=== PATIENT | female | born 1995 | race Caucasian/White ===

== ENCOUNTER 2016-08-14 21:23 | Emergency (ER) | payer OTHER ==
[~2016-08-14] VITALS: Ht 157.5 cm; Wt 77.1 kg
[2016-08-14 22:15] VITALS: BP 117/74
--- NOTE | 2016-08-15 00:12 | NUR ---
PT TAKEN TO OF.
--- NOTE | 2016-08-15 00:27 | NUR ---
21Y F BIB BOYFRIEND C/O OF RT EAR PAIN THAT STARTED YESTERDAY. PAIN GOES ON AND OFF AND 9/10 IN SCALE. DENIES N/V/D; SKIN IS PINK/WARM/DRY; AAOX4 WITH EVEN AND STEADY GAIT; PATIENT STATES PAIN OF 0/10 AT THIS TIME; VSS; PATIENT POSITIONED FOR COMFORT; HOB ELEVATED; BEDRAILS UP X2; BED DOWN. ER MD MADE AWARE OF PT STATUS.
--- NOTE | 2016-08-15 01:22 | NUR ---
Dr. Garces evaluating patient.
[2016-08-15 01:41] VITALS: BP 118/65
--- NOTE | 2016-08-15 01:41 | NUR ---
Patient discharged with v/s stable. Written and verbal after care instructions given and explained. Patient alert, oriented and verbalized understanding of instructions. Ambulatory with steady gait. All questions addressed prior to discharge. ID band removed. Patient advised to follow up with PMD. Rx of AUGMENTIN 875MG TAB 1 TAB ORALLY 2 TIMES A DAY WITH MEAL, AURALGAN OTIC SOLUTION 3 DROPS 4 TIMES A DAY NEEDED given. Patient educated on indication of medication including possible reaction and side effects. Opportunity to ask questions provided and answered.
== END 2016-08-15 00:12 | disposition home or self-care (01) ==
LOC: MED 21:23
DX: H66.91 Otitis media, unspecified, right ear (principal)

== ENCOUNTER 2018-10-17 15:09 | Emergency (ER) | payer SELFPAY ==
[~2018-10-17] VITALS: Ht 157.5 cm; Wt 83.5 kg
[2018-10-17 15:15] VITALS: BP 136/67
--- NOTE | 2018-10-17 15:34 | NUR ---
23 Y FEMALE C/O N/V WITH FEVER X 1 DAY. C/O LOWER ABD PAIN. PAIN 4/10 ACHING. NO FEVER AT THIS TIME. DENIES VAGINAL BLEEDING. DENIES CONSTIPATION OR DIARRHEA. IUP 8 WEEKS, G 2 P1, LMP 09/03/18. VSS AT THIS TIME. AA0X4. BED IS DOWN, LOCKED, BED RAIL X 1, ERMD NOTIFIED. DENIES PMH
--- NOTE | 2018-10-17 15:39 | NUR ---
DR MONGE AT BEDSIDE
--- NOTE | 2018-10-17 16:20 | NUR ---
PT AMB TO BATHROOM
--- NOTE | 2018-10-17 16:24 | NUR ---
FLU SWAB COLLECTED
[2018-10-17 16:34] LABS: APPEARANCE,URINE HAZY (CLEAR); BILIRUBIN,URINE NEGATIVE (NEGATIVE); BLOOD, URINE 3+ (NEGATIVE); COLOR,URINE YELLOW (YELLOW); LEUKOCYTE ESTERASE ,URINE 2+ (NEGATIVE); NITRITE, URINE NEGATIVE (NEGATIVE); PH,URINE 7.5 (5.0-9.0); UGLUCOSE NEGATIVE (NEGATIVE)
[2018-10-17 16:48] LABS: RBC,URINE >20 (MANY) /HPF (0-5)
--- NOTE | 2018-10-17 17:00 | NUR ---
vss at this time, pt aa0x4, sitting upright in bed
[2018-10-17 17:17] LABS: APPEARANCE,URINE CLEAR (CLEAR); BILIRUBIN,URINE NEGATIVE (NEGATIVE); BLOOD, URINE NEGATIVE (NEGATIVE); COLOR,URINE YELLOW (YELLOW); LEUKOCYTE ESTERASE ,URINE TRACE (NEGATIVE); NITRITE, URINE NEGATIVE (NEGATIVE); PH,URINE 7.5 (5.0-9.0); UGLUCOSE NEGATIVE (NEGATIVE)
[2018-10-17 17:22] LABS: RBC,URINE 0-5 /HPF (0-5)
[2018-10-17 18:47] VITALS: BP 121/80
== END 2018-10-17 18:48 | disposition home or self-care (01) ==
LOC: MED 15:09
DX: O23.41 Unspecified infection of urinary tract in pregnancy, first trimester (principal); R07.9 Chest pain, unspecified; R05 Cough; R51 Headache; R50.9 Fever, unspecified; Z88.1 Allergy status to other antibiotic agents; Z3A.01 Less than 8 weeks gestation of pregnancy
CPT/HCPCS: 81001; 81025; 87086; 87186; 87804; 99283

== ENCOUNTER 2018-11-28 21:56 | Emergency (ER) | payer SELFPAY ==
[~2018-11-28] VITALS: Ht 157.5 cm; Wt 79.4 kg
[2018-11-28 22:04] VITALS: BP 130/76
--- NOTE | 2018-11-28 22:05 | NUR ---
PT PLACED IN BED 12.
[2018-11-28] MEDS ORDERED: ONDANSETRON 4 MG ODT PO ONE (22:15)
--- NOTE | 2018-11-28 22:18 | NUR ---
23 Y/O F PRESENTS TO THE ED W/C/O VOMITING AND DIZZINESS X 3 DAYS WITH ; SKIN IS INTACT, PINK/WARM/DRY; AAOX4, PERRL, WITH EVEN AND STEADY GAIT; LUNGS CLEAR BL, BREATHING UNLABORED; HR EVEN AND REGULAR, BL PERIPHERAL PULSES PRESENT; BS ACTIVE X4, NO TENDERNESS TO PALPATION. PT DENIES ANY FEVER, CP, SOB, OR COUGH AT THIS TIME; PT STATES 0/10 PAIN AT THIS TIME; VSS; PATIENT POSITIONED FOR COMFORT; HOB ELEVATED; BEDRAILS UP X2; BED DOWN.
--- NOTE | 2018-11-28 22:50 | NUR ---
Patient discharged with v/s stable. Written and verbal after care instructions given and explained. Patient alert, oriented and verbalized understanding of instructions. Ambulatory with steady gait. All questions addressed prior to discharge. ID band removed. Patient advised to follow up with PMD. Rx of MACROBID, ZOFRAN given. Patient educated on indication of medication including possible reaction and side effects. Opportunity to ask questions provided and answered.
== END 2018-11-28 22:50 | disposition home or self-care (01) ==
LOC: MED 21:56
DX: O23.41 Unspecified infection of urinary tract in pregnancy, first trimester (principal); Z3A.12 12 weeks gestation of pregnancy; Z88.1 Allergy status to other antibiotic agents
CPT/HCPCS: 81002; 81025; 99283; Q0162

== ENCOUNTER 2019-04-07 21:50 | Emergency (ER) | payer MEDICAID, OTHER ==
[~2019-04-07] VITALS: Ht 157.5 cm; Wt 86.4 kg
[2019-04-07 22:10] VITALS: BP 127/73
--- NOTE | 2019-04-07 22:19 | NUR ---
PT AMBULATES TO LOBBY WITH STEADY GAIT. AWAITING AVAILABLE BED.
--- NOTE | 2019-04-07 22:20 | NUR ---
PATIENT PRESENTS TO ED WITH MATT, DRY COUGH, BODY ACHES, FATIGUE X 2 DAYS. 31 WEEKS . PMH-- DENIES RX-- PRENATALS . DENIES N/V/D; SKIN IS PINK/WARM/DRY; AAOX4 WITH EVEN AND STEADY GAIT; LUNGS CLEAR BL; HR EVEN AND REGULAR; PT DENIES ANY FEVER, CP, SOB, OR COUGH AT THIS TIME; VSS; PATIENT POSITIONED FOR COMFORT; HOB ELEVATED; BEDRAILS UP X2; BED DOWN. ER MD MADE AWARE OF PT STATUS.
--- NOTE | 2019-04-07 22:53 | NUR ---
PT AMBULATED TO ER BED 12
--- NOTE | 2019-04-08 00:15 | NUR ---
NO CHANGES FROM PREVIOUS ASSESSMENT. VSS. PT APPEARS TO BE IN NO DISTRESS. WILL CONTINUE TO MONITOR. WAITING FOR DISPO.
[2019-04-08 00:38] VITALS: BP 122/74
== END 2019-04-08 00:39 | disposition home or self-care (01) ==
LOC: MED 21:50
DX: O23.43 Unspecified infection of urinary tract in pregnancy, third trimester (principal); Z3A.31 31 weeks gestation of pregnancy; Z88.1 Allergy status to other antibiotic agents
CPT/HCPCS: 81002; 81025; 87804; 99283

== ENCOUNTER 2019-12-20 23:05 | Emergency (ER) | payer OTHER ==
[~2019-12-20] VITALS: Ht 157.5 cm; Wt 81.6 kg
[2019-12-20 23:09] VITALS: BP 144/68
--- NOTE | 2019-12-20 23:17 | NUR ---
PT WAITING IN LOBBY FOR ER BED
--- NOTE | 2019-12-20 23:49 | NUR ---
PT AMBULATED TO BED #7
--- NOTE | 2019-12-20 23:50 | NUR ---
24 Y/O PRESENTED TO ED C/O LOWER ABD PAIN; BLOATING; LAST BM 12/19 AROUND 1030PM AND IMMEDIATELY AFTER PT FELT EXCRUCIATIONG LOWER ABD PAIN 9/10; PT DESCRIBES PAIN SHARP/SHOOTING; PT PAIN INCREASED UPON PALPATION OF LRQ OF ABD. NO OTC MEDS TAKEN FOR PAIN; PT RECENTLY GIVEN MIRALAX AND MAG. CITRATE FROM PCP FOR CONSTIPATION; PT REPORTS QUARTER SIZE BRIGHT RED BLOOD ON STOOL; PT STATES SHE STARTED PERIOD 12/12 AND ENDED "COUPLE OF DAYS AGO" BUT SHE IS STILL SPOTTING SO SHE HAS BEEN WEARING PADS. PT STATES VOMITTING X 1 IN THE MORNING. PT STATES DIARRHEA ON LBM ON 12/19. NORMOACTIVE BS IN ALL QUADS. PT BREATHING EVEN AND UNLABORED. VSS. PMH:CONSTIPATION ALLERGY: CEFZIL
[2019-12-20] MEDS ORDERED: KETOROLAC 30 MG/ML VIAL IVP ONE (23:55)
[2019-12-21] MEDS ORDERED: ACETAMINOPHEN EXTRA STRENGTH 500 MG TAB PO ONE
--- NOTE | 2019-12-21 00:03 | NUR ---
IV ACCESS , 20G R A/C , BLOOD LABS DRAWN AND HANDED OFF TO LAB.
[2019-12-21 00:08] LABS: BASOPHILS % (AUTO) 0.4 % (0.0-2.0); EOSINOPHILS # (AUTO) 0.1 K/uL (0-0.4); EOSINOPHILS % (AUTO) 0.6 % (0.0-4.0); HEMATOCRIT 40.2 % (36-48); HEMOGLOBIN 13.3 g/dL (12.0-16.0); LYMPHOCYTES # (AUTO) 1.5 K/uL (2.5-16.5); LYMPHOCYTES % (AUTO) 12.7 % (20.5-51.1); MEAN CORPUSCULAR HEMOGLOBIN 31 pg (27-31); MEAN CORPUSCULAR HGB CONC 33 g/dL (33-37); MEAN CORPUSCULAR VOLUME 92.3 fL (80-94); MONOCYTES # (AUTO) 0.6 K/uL (0.8-1.0); MONOCYTES % (AUTO) 5.2 % (1.7-9.3); NEUTROPHILS # (AUTO) 9.5 K/uL (1.8-7.7); NEUTROPHILS % (AUTO) 81.1 % (42.2-75.2); PLATELET COUNT (AUTO) 273 K/uL (140-450); RED BLOOD CELL COUNT(AUTO) 4.35 MIL/uL (4.20-5.40); RED CELL DISTRIBUTION WIDTH 13.4 % (11.6-13.7); WHITE BLOOD COUNT (AUTO) 11.7 K/uL (4.8-10.8)
[2019-12-21 00:09] LABS: APPEARANCE,URINE CLOUDY (CLEAR); BILIRUBIN,URINE NEGATIVE (NEGATIVE); BLOOD, URINE 3+ (NEGATIVE); COLOR,URINE AMBER (YELLOW); LEUKOCYTE ESTERASE ,URINE TRACE (NEGATIVE); NITRITE, URINE NEGATIVE (NEGATIVE); UGLUCOSE NEGATIVE (NEGATIVE)
[2019-12-21 00:29] LABS: ANION GAP 12.5 (8-16); CARBON DIOXIDE 26.3 mmol/L (21-32); CREATININE 1.2 mg/dL (0.6-1.3); POTASSIUM 3.8 mmol/L (3.5-5.1); TOTAL BILIRUBIN 0.3 mg/dL (0.0-1.0)
[2019-12-21 00:56] LABS: RBC,URINE >100 /HPF (0-5)
[2019-12-21 00:57] LABS: WBC,URINE 20-60 /HPF (0-5)
[2019-12-21] MEDS ORDERED: NITROFURANTOIN 100 MG CAP PO ONE (01:05)
--- NOTE | 2019-12-21 01:54 | NUR ---
DR. OG AT BEDSIDE.
[2019-12-21 02:06] VITALS: BP 102/55
--- NOTE | 2019-12-21 02:06 | NUR ---
Patient discharged with v/s stable. Written and verbal after care instructions given and explained. Patient alert, oriented and verbalized understanding of instructions. Ambulatory with steady gait. All questions addressed prior to discharge. ID band removed. Patient advised to follow up with PMD. Rx of NAPROXEN AND MACROBID given. Patient educated on indication of medication including possible reaction and side effects. Opportunity to ask questions provided and answered.
== END 2019-12-21 02:06 | disposition home or self-care (01) ==
LOC: MED 23:05
DX: O03.9 Complete or unspecified spontaneous abortion without complication (principal); O23.40 Unspecified infection of urinary tract in pregnancy, unspecified trimester; Z88.1 Allergy status to other antibiotic agents
CPT/HCPCS: 36415; 76801; 80053; 81001; 81025; 84702; 85025; 86900; 86901; 87086; 99284; Q0092

== ENCOUNTER 2019-12-24 15:44 | Emergency (ER) | payer OTHER ==
[~2019-12-24] VITALS: Ht 157.5 cm; Wt 82.1 kg
[2019-12-24 15:57] VITALS: BP 110/64
--- NOTE | 2019-12-24 16:30 | NUR ---
PT CAME IN FOR A RECHECK ON SHE WAS TOLD TO DO 3 DAYS AGO DUE TO VAGINAL BLEEDING AND ABD PAIN. PER PT - SHE IS NOT HAVING ANY PAIN OR VAGINAL BLEEDING AT THIS TIME. A0. BED IN LOW POSITION, SIDE RAIL UP X1.
[2019-12-24 16:39] LABS: BASOPHILS % (AUTO) 0.3 % (0.0-2.0); EOSINOPHILS # (AUTO) 0.1 K/uL (0-0.4); EOSINOPHILS % (AUTO) 1.5 % (0.0-4.0); HEMATOCRIT 41.8 % (36-48); HEMOGLOBIN 13.9 g/dL (12.0-16.0); LYMPHOCYTES # (AUTO) 2.6 K/uL (2.5-16.5); LYMPHOCYTES % (AUTO) 29.7 % (20.5-51.1); MEAN CORPUSCULAR HEMOGLOBIN 31 pg (27-31); MEAN CORPUSCULAR HGB CONC 33 g/dL (33-37); MEAN CORPUSCULAR VOLUME 92.8 fL (80-94); MONOCYTES # (AUTO) 0.6 K/uL (0.8-1.0); MONOCYTES % (AUTO) 6.3 % (1.7-9.3); NEUTROPHILS # (AUTO) 5.5 K/uL (1.8-7.7); NEUTROPHILS % (AUTO) 62.2 % (42.2-75.2); PLATELET COUNT (AUTO) 287 K/uL (140-450); RED BLOOD CELL COUNT(AUTO) 4.51 MIL/uL (4.20-5.40); RED CELL DISTRIBUTION WIDTH 13.4 % (11.6-13.7); WHITE BLOOD COUNT (AUTO) 8.9 K/uL (4.8-10.8)
--- NOTE | 2019-12-24 16:50 | NUR ---
ERMD ASSESSING PT AT BEDSIDE
[2019-12-24 17:48] LABS: ALBUMIN 4.3 g/dL (3.4-5.0); CARBON DIOXIDE 28.3 mmol/L (21-32); CREATININE 0.9 mg/dL (0.6-1.3); POTASSIUM 4.3 mmol/L (3.5-5.1); TOTAL BILIRUBIN 0.5 mg/dL (0.0-1.0)
[2019-12-24 18:17] LABS: PROTHROMBIN TIME 10.4 secs (10.8-13.4)
--- NOTE | 2019-12-24 18:30 | NUR ---
PT RESTING IN BED, NO NEW NEEDS AT THIS TIME
--- NOTE | 2019-12-24 19:16 | NUR ---
RECIEVED REPORT FROM JUSTIN JADE. TRANSFER OF CARE AT THIS TIME.
--- NOTE | 2019-12-24 19:16 | NUR ---
REPORT GIVEN TO JUSTIN BLAKE FOR CONTINUATION OF CARE
--- NOTE | 2019-12-24 21:30 | NUR ---
PT RESTING COMFORTABLY IN BED. EQUAL CHEST RISE AND FALL. PT STATES SHE IS IN NO PAIN AT THIS TIME. SAFETY MEASURES IN PLACE.
--- NOTE | 2019-12-24 22:00 | NUR ---
DR CHAMPION AT BEDSIDE EXPLAINING PLAN OF CARE
[2019-12-24 22:30] VITALS: BP 125/65
--- NOTE | 2019-12-24 22:30 | NUR ---
Patient discharged with v/s stable. Written and verbal after care instructions given and explained. Patient verbalized understanding. Ambulatory with steady gait. All questions addressed prior to discharge. Advised to follow up with PMD.
== END 2019-12-24 22:30 | disposition home or self-care (01) ==
LOC: MED 15:44
DX: O46.91 Antepartum hemorrhage, unspecified, first trimester (principal); O21.9 Vomiting of pregnancy, unspecified; Z3A.01 Less than 8 weeks gestation of pregnancy; Z88.1 Allergy status to other antibiotic agents
CPT/HCPCS: 36415; 76817; 80053; 84702; 85025; 85610; 85730; 99284; Q0092

== ENCOUNTER 2019-12-25 15:50 | Day surgery (SDC) | payer OTHER ==
[~2019-12-25] VITALS: Ht 157.5 cm; Wt 81.2 kg
[2019-12-25] MEDS ORDERED: fentaNYL 0.05 MG/ML VIAL ONE (16:50)
[2019-12-25] MEDS ORDERED: KETOROLAC 30 MG/ML VIAL ONE (16:50)
[2019-12-25] MEDS ORDERED: SUCCINYLCHOLINE CHLORIDE 200 MG/10 ML VIAL IVP ONE (16:50)
[2019-12-25] MEDS ORDERED: HYDROmorphone PFS 2 MG/ML SYR ONE (16:50)
[2019-12-25] MEDS ORDERED: ROCURONIUM 50 MG/5 ML VIAL IV ONE (16:50)
[2019-12-25] MEDS ORDERED: DEXAMETHASONE 4 MG/ML VIAL ONE (16:50)
[2019-12-25] MEDS ORDERED: DESFLURANE 240 ML BTL INH ONE (16:50)
[2019-12-25] MEDS ORDERED: PROPOFOL 200 MG/20 ML VIAL IV ONE (16:50)
[2019-12-25] MEDS ORDERED: ONDANSETRON 4 MG/2 ML VIAL ONE (16:50)
[2019-12-25] MEDS ORDERED: ONDANSETRON 4 MG/2 ML VIAL IVP PRN (17:15)
[2019-12-25] MEDS ORDERED: KETOROLAC 30 MG/ML VIAL IVP PRN (17:45)
[2019-12-25] MEDS: BUPIVACAINE-MPF/EPI 0.25% 30 ML VIAL INJ ONE (17:59)
[2019-12-25] MEDS: oxyCODONE/APAP 5/325 MG 1 TAB TAB PO PRN (18:50)
== END 2019-12-25 19:55 | disposition home or self-care (01) ==
LOC: MDS 15:50 → MMU 15:50 → EDSTATUS 16:30 → MDS 19:55
PROVIDERS: ATTEND Obstetrics & Gynecology
DX: O00.101 Right tubal pregnancy without intrauterine pregnancy (principal); Z88.1 Allergy status to other antibiotic agents
CPT/HCPCS: 36415; 59151; 86886; 86900; 86901; J0330; J1100; J1170; J1885; J2405; J2704; J3010; J3490

== ENCOUNTER 2020-01-25 08:54 | Emergency (ER) | payer OTHER ==
[~2020-01-25] VITALS: Ht 162.6 cm; Wt 82.1 kg
[2020-01-25 08:57] VITALS: BP 127/49
--- NOTE | 2020-01-25 09:02 | NUR ---
Patient ambulated to bed 3. RN evaluating patient at bedside.
--- NOTE | 2020-01-25 09:29 | NUR ---
24 Y/O FEMALE C/O R FLANK PAIN, URINARY URGENCY, BURNING AND FREQUENCY X1 WEEK AND WORSENING LAST NIGHT. PT STATES PAIN IS UNRELEIVED BY TYLENOL. PT HAS EXTENSIVE UTI HX. DENIES ANY HEMATURIA. VSS.
[2020-01-25] MEDS ORDERED: levoFLOXacin 500 MG TAB PO ONE (09:30)
[2020-01-25 09:37] VITALS: BP 127/49
--- NOTE | 2020-01-25 09:37 | NUR ---
Patient discharged with v/s stable. Written and verbal after care instructions given and explained. Patient alert, oriented and verbalized understanding of instructions. Ambulatory with steady gait. All questions addressed prior to discharge. ID band removed. Patient advised to follow up with PMD. Rx of CIPRO,PYRIDIUM given. Patient educated on indication of medication including possible reaction and side effects. Opportunity to ask questions provided and answered.
[2020-01-25 09:42] LABS: APPEARANCE,URINE CLEAR (CLEAR); BILIRUBIN,URINE NEGATIVE (NEGATIVE); BLOOD, URINE 1+ (NEGATIVE); COLOR,URINE YELLOW (YELLOW); LEUKOCYTE ESTERASE ,URINE 1+ (NEGATIVE); NITRITE, URINE POSITIVE (NEGATIVE); UGLUCOSE NEGATIVE (NEGATIVE)
[2020-01-25 09:57] LABS: WBC,URINE 20-60 /HPF (0-5)
== END 2020-01-25 09:37 | disposition home or self-care (01) ==
LOC: MED 08:54
DX: N39.0 Urinary tract infection, site not specified (principal); R03.0 Elevated blood-pressure reading, without diagnosis of hypertension; Z88.1 Allergy status to other antibiotic agents
CPT/HCPCS: 81001; 87086; 99283

== ENCOUNTER 2020-08-23 20:26 | Emergency (ER) | payer OTHER ==
[~2020-08-23] VITALS: Ht 157.5 cm; Wt 83.5 kg
[2020-08-23 20:37] VITALS: BP 134/69
[2020-08-23] MEDS ORDERED: diphenhydrAMINE 50 MG/ML VIAL IM ONE (21:05)
--- NOTE | 2020-08-23 21:08 | NUR ---
Pt c/o itching and rash generalized over body xfew hours. States she does not know what the irritant could be. Denies other allergic symptoms, denies airway swelling/difficulty breathing. A/Ox4.
--- NOTE | 2020-08-23 21:28 | NUR ---
Patient discharged with v/s stable. Written and verbal after care instructions given and explained. Patient alert, oriented and verbalized understanding of instructions. Ambulatory with steady gait. All questions addressed prior to discharge. ID band removed. Patient advised to follow up with PMD. Rx of hydrocortisone and benadryl given. Patient educated on indication of medication including possible reaction and side effects. Opportunity to ask questions provided and answered.
[2020-08-23 21:29] VITALS: BP 134/69
== END 2020-08-23 21:29 | disposition home or self-care (01) ==
LOC: MED 20:26
DX: L25.9 Unspecified contact dermatitis, unspecified cause (principal); Z88.1 Allergy status to other antibiotic agents
CPT/HCPCS: 96372; 99283; J1200